=== PATIENT | male | born 1965 | race African-American/Black ===

== ENCOUNTER → 2018-07-07 | Outpatient (CLI) | payer OTHER ==
[~2018-07-07] MED LIST: ARIP20TA4 PO; ASPI81TA86 PO; CALC-774 PO; CARV25TA78 PO; CHOL10005 PO; GLIP-154 PO; LOSA100T75 PO; MAGN400T21 PO; MELA3TAB31 PO; METF-450 PO; MYCO250C38 PO; OMEP-137 PO; PRED20TA6 PO; ROSU20TA23 PO; SAXA5TAB4 PO; TACR1CAP13 PO; VENL75TA12 PO; VITA1CAP46 PO
== END ==
LOC: AMB 22:12
PROVIDERS: ATTEND Nurse Practitioner
DX: R07.9 Chest pain, unspecified (principal); R06.03 Acute respiratory distress
CPT/HCPCS: A0425; A0427